=== PATIENT | male | born 1970 | race Caucasian/White ===

== ENCOUNTER 2017-11-02 09:19 | Inpatient (IN) | payer MEDICAID ==
[~2017-11-02] VITALS: Ht 177.8 cm; Wt 77.0 kg
[2017-11-02 09:24] VITALS: Ht 177.8 cm; Wt 77.0 kg
[2017-11-02] MEDS ORDERED: VANCOMYCIN 1 GM (PMX) 250 ML IVPB STA (10:09)
[2017-11-02] MEDS ORDERED: SODIUM CHLORIDE 0.9% 1L BAG IV* STA (10:09)
[2017-11-02] MEDS ORDERED: PIPER-TAZO 3.375 GM IV (PMX) 50 ML IVPB STA (10:09)
--- NOTE | 2017-11-02 10:52 | RADRPT ---
PROCEDURE: XR Chest. CLINICAL INDICATION: Sepsis TECHNIQUE: Single AP portable chest. COMPARISON: No prior Chest x-ray FINDINGS: The cardiomediastinal silhouette is within normal limits of size. The lungs are clear without pleur al effusion or focal consolidation. No pneumothorax. The osseous structures and soft tissues are unr emarkable. IMPRESSION: 1. No evidence for active cardiopulmonary disease. RPTAT:AAJJ Kaleigh Guerrero Physician Date Time Electronically viewed and signed by Physician Spencer on 11/02/2017 10:52 PARUL/
[2017-11-02 10:53] LABS: BASOPHILS % 0.4 % (0.0-2.0); EOSINOPHILS # 0.1 10^3/ul (0.0-0.5); EOSINOPHILS % 1.2 % (0.0-7.0); HEMATOCRIT 40.3 % (42.0-52.0); HEMOGLOBIN 14.2 g/dl (14.0-18.0); LYMPHOCYTES # 1.6 10^3/ul (0.8-2.9); LYMPHOCYTES % 14.9 % (15.0-51.0); MEAN CORPUSCULAR HEMOGLOBIN 32.7 pg (29.0-33.0); MEAN CORPUSCULAR HGB CONC 35.2 g/dl (32.0-37.0); MEAN CORPUSCULAR VOLUME 92.9 fl (82.0-101.0); MEAN PLATELET VOLUME 10.5 fl (7.4-10.4); MONOCYTES % 9.4 % (0.0-11.0); NEUTROPHIL # 7.9 10^3/ul (1.6-7.5); NEUTROPHILS % 73.8 % (39.0-77.0); PLATELET COUNT 245 10^3/UL (140-415); RED BLOOD COUNT 4.34 10^6/ul (4.70-6.10); RED CELL DISTRIBUTION WIDTH 11.9 % (11.5-14.5); WHITE BLOOD COUNT 10.7 10^3/ul (4.8-10.8)
--- NOTE | 2017-11-02 11:02 | RADRPT ---
PROCEDURE: knee x-ray CLINICAL INDICATION: Sepsis. TECHNIQUE: AP, lateral and oblique views of the right knee were obtained. COMPARISON: None FINDINGS: No evidence of fracture or dislocation. The medial, lateral, as well as patellofemoral knee joint compartments are well maintained. Small suprapatellar joint effusion. Mild prepatellar soft tissue swelling. IMPRESSION: 1. No fracture or dislocation. MRI may be considered to exclude the possibility of septic arthritis 2. Small suprapatellar joint effusion. 3. Mild prepatellar soft tissue swelling. Correlate with direct inspection. RPTAT:AAJJ Physician Spencer Date Time Electronically viewed and signed by Physician Spencer on 11/02/2017 11:02 PARUL/
[2017-11-02 11:15] LABS: INR 1.08; PROTIME 14.1 Sec (11.9-14.9); PT RATIO 1.1
[2017-11-02 11:16] LABS: ALANINE AMINOTRANSFERASE 53 IU/L (13-69); ALBUMIN 4.4 g/dl (3.3-4.9); ALBUMIN/GLOBULIN RATIO 1.18; ALKALINE PHOSPHATASE 101 IU/L (42-121); ANION GAP 13 (8-16); ASPARTATE AMINO TRANSFERASE 62 IU/L (15-46); BILIRUBIN,INDIRECT 1.2 mg/dl (0-1.1); BILIRUBIN,TOTAL 1.2 mg/dl (0.2-1.3); BLOOD UREA NITROGEN 14 mg/dl (7-20); CALCIUM 9.8 mg/dl (8.4-10.2); CARBON DIOXIDE 29 mmol/L (21-31); CHLORIDE 102 mmol/L (97-110); CREATININE 0.79 mg/dl (0.61-1.24); GLUCOSE 105 mg/dl (70-220); PARTIAL THROMBOPLASTIN TIME 27.7 Sec (25.0-35.0); SODIUM 140 mmol/L (135-144); TOTAL PROTEIN 8.1 g/dl (6.1-8.1)
[2017-11-02 11:31] LABS: TROPONIN-I < 0.012 ng/ml (0.00-0.12)
[2017-11-02 11:42] LABS: ADD UMIC NO; UR ASCORBIC ACID 40 mg/dL (NEGATIVE); UR BILIRUBIN (Dip) NEGATIVE (NEGATIVE); UR BLOOD (Dip) NEGATIVE (NEGATIVE); UR CLARITY CLEAR (CLEAR); UR COLOR AMBER (YELLOW); UR GLUCOSE (Dip) NEGATIVE (NEGATIVE); UR KETONES (Dip) TRACE mg/dL (NEGATIVE); UR LEUKOCYTE ESTERASE (Dip) NEGATIVE Leu/ul (NEGATIVE); UR NITRITE (Dip) NEGATIVE (NEGATIVE); UR SPECIFIC GRAVITY (Dip) 1.026 (1.003-1.030); UR TOTAL PROTEIN (Dip) NEGATIVE (NEGATIVE); UR UROBILINOGEN (Dip) 1+ mg/dL (NEGATIVE)
[2017-11-02 12:28] LABS: C-REACTIVE PROTEIN 4.9 mg/dl (0.0-0.9)
[2017-11-02] MEDS ORDERED: ACETAMINOPHEN 325 MG TAB PO PRN ×2 (13:00→15:00)
[2017-11-02] MEDS ORDERED: ONDANSETRON 4 MG INJ IV PRN (13:00)
--- NOTE | 2017-11-02 13:20 | ERD ---
ER Documentation Chief Complaint Chief Complaint R. knee pain x 1 day, twisted at work HPI Patient is a 47-year-old male who presents with right knee pain. He fell onto his right knee on Wednesday while at work. He has pain and swelling to the right knee since and recently became warm to touch. He is unable to straighten his knee secondary to pain. He has pain with range of motion. He has had no treatment as of yet. Upon review of old medical records this is the patient's fourth visit to the ER since 2013. ROS All systems reviewed and are negative except as per history of present illness. Medications Home Meds No Active Prescriptions or Reported Meds Allergies Allergies: Coded Allergies: No Known Allergy (Unverified , 11/02/17) PMhx/Soc History of Surgery: Yes (gallbladder surgery; appendectomy) Anesthesia Reaction: No Hx Neurological Disorder: No Hx Respiratory Disorders: No Hx Cardiac Disorders: No Hx Psychiatric Problems: No Hx Miscellaneous Medical Probl: Yes (stomach ulcers) Hx Alcohol Use: No Hx Substance Use: Yes (marijuana) Hx Tobacco Use: No Smoking Status: Never smoker FmHx Family History: No diabetes Physical Exam Vitals Vital Signs Date Time Temp Pulse Resp B/P Pulse Ox O2 Delivery O2 Flow Rate FiO2 11/02/17 11:25 98.3 86 18 128/74 97 Room Air 11/02/17 09:24 98.1 83 19 124/69 97 Physical Exam Const: Moderate distress secondary to pain Head: Atraumatic Eyes: Normal Conjunctiva ENT: Normal External Ears, Nose and Mouth. Neck: Full range of motion..~ No meningismus. Resp: Clear to auscultation bilaterally Cardio: Regular rate and rhythm, no murmurs Abd: Soft, non tender, non distended. Normal bowel sounds Skin: Warm to touch with induration to the anterior right knee Back: No midline or flank tenderness Ext: No obvious joint effusion, swelling to the right knee which is more pronounced in the anterior section consistent with infectious bursitis or cellulitis Neur: Awake and alert Psych: Normal Mood and Affect Result Diagram: 11/02/17 1030 11/02/17 1030 Results 24 hrs Laboratory Tests Test 11/02/17 10:30 11/02/17 11:25 White Blood Count 10.710^3/ul Red Blood Count 4.3410^6/ul Hemoglobin 14.2g/dl Hematocrit 40.3% Mean Corpuscular Volume 92.9fl Mean Corpuscular Hemoglobin 32.7pg Mean Corpuscular Hemoglobin Concent 35.2g/dl Red Cell Distribution Width 11.9% Platelet Count 13779^3/UL Mean Platelet Volume 10.5fl Neutrophils % 73.8% Lymphocytes % 14.9% Monocytes % 9.4% Eosinophils % 1.2% Basophils % 0.4% Nucleated Red Blood Cells % 0.0/100WBC Neutrophils # 7.910^3/ul Lymphocytes # 1.610^3/ul Monocytes # 1.010^3/ul Eosinophils # 0.110^3/ul Basophils # 0.010^3/ul Nucleated Red Blood Cells # 0.010^3/ul Erythrocyte Sedimentation Rate 19mm/Hr Prothrombin Time 14.1Sec Prothrombin Time Ratio 1.1 INR International Normalized Ratio 1.08 Activated Partial Thromboplast Time 27.7Sec Sodium Level 140mmol/L Potassium Level 4.0mmol/L Chloride Level 102mmol/L Carbon Dioxide Level 29mmol/L Anion Gap 13 Blood Urea Nitrogen 14mg/dl Creatinine 0.79mg/dl Glucose Level 105mg/dl Lactic Acid Level 1.7mmol/L Calcium Level 9.8mg/dl Total Bilirubin 1.2mg/dl Direct Bilirubin 0.00mg/dl Indirect Bilirubin 1.2mg/dl Aspartate Amino Transf (AST/SGOT) 62IU/L Alanine Aminotransferase (ALT/SGPT) 53IU/L Alkaline Phosphatase 101IU/L Troponin I < 0.012ng/ml C-Reactive Protein 4.9mg/dl Total Protein 8.1g/dl Albumin 4.4g/dl Globulin 3.70g/dl Albumin/Globulin Ratio 1.18 Urine Color MINE Urine Clarity CLEAR Urine pH 5.0 Urine Specific Garvin 1.026 Urine Ketones TRACEmg/dL Urine Nitrite NEGATIVEmg/dL Urine Bilirubin NEGATIVEmg/dL Urine Urobilinogen 1+mg/dL Urine Leukocyte Esterase NEGATIVELeu/ul Urine Hemoglobin NEGATIVEmg/dL Urine Glucose NEGATIVEmg/dL Urine Total Protein NEGATIVEmg/dl Current Medications Medications (Trade) Dose Ordered Sig/Cookie Route PRN Reason Start Time Stop Time Status Last Admin Dose Admin Sodium Chloride 2390 ml 2,390 ml BOLUS OVER 2 HOURS STAT IV* 11/02/17 10:09 11/02/17 10:11 DC 12/12/17 11:13 Vancomycin HCl 250 ml @ 125 mls/hr ONCE STAT IVPB 11/02/17 10:09 11/02/17 12:08 DC 11/02/17 11:52 Piperacillin Sod/ Tazobactam Sod (Zosyn 3.375gm/ 50 ml (Pmx)) 50 ml @ 100 mls/hr ONCE STAT IVPB 11/02/17 10:09 11/02/17 10:38 DC 11/02/17 11:14 Ondansetron HCl (Zofran Inj) 4 mg BRIDGE ORDER PRN IV NAUSEA AND/OR VOMITING 11/02/17 13:00 11/03/17 12:59 Acetaminophen (Tylenol Tab) 650 mg ER BRIDGE PRN PO MILD PAIN/FEVER 11/02/17 13:00 11/03/17 12:59 Procedures/MDM Right knee x-ray negative for fracture per radiology. There is anterior soft tissue swelling. Chest x-ray negative for pneumonia or pneumothorax per radiology. Patient is a 47-year-old male presents with right knee pain with what appears to be cellulitis versus infectious bursitis. There is no obvious sign of joint effusion at this time and I doubt a septic joint. However the patient does have significant pain and will need admission for pain control and antibiotics. The patient was given broad-spectrum antibiotics. At this point I see no sign of sepsis. The patient will be admitted to the care of the panel team and I spoke with Dr. Palomares who is the orthopedic doctor ultrasound applications specialist who is willing to see the patient in consultation. Departure Diagnosis: Primary Impression: Cellulitis Site of cellulitis: extremity Site of cellulitis of extremity: lower extremity Laterality: right Qualified Code: L03.115 - Cellulitis of right lower extremity Additional Impression: Knee pain Chronicity: acute Laterality: right Qualified Code: M25.561 - Acute pain of right knee Condition: PETAR Hall MD Nov 02, 2017 13:20
[2017-11-02] MEDS ORDERED: NACL 0.9% 3 ML SYG IV SCH (15:00)
[2017-11-02] MEDS ORDERED: ONDANSETRON 4 MG TAB PO PRN (15:00)
[2017-11-02] MEDS ORDERED: HYDROCODONE/APAP (5/325) TAB PO PRN (15:00)
[2017-11-02 16:55] VITALS: TEMP 98.3
--- NOTE | 2017-11-02 16:55 | HP ---
Date/Time of Note Date/Time of Note DATE: 11/02/17 TIME: 16:46 Assessment/Plan VTE Prophylaxis VTE Prophylaxis Intervention: SCD's Assessment/Plan Assessment/Plan 47 yo M with no chronic medical conditions here with 3 days of L knee pain, swelling, and erythema after accidentally pressing his knee into a rock. Exam with evidence of superficial skin/soft tissue infection, joint swelling and effusion concerning for possible septic joint. Unclear why sepsis protocol initiated as pt does not meet SIRS criteria (HR <100, no need for supplemental O2, WBCs wnl) PLAN empiric vancomycin, no compelling indication for expansive gram negative coverage blood cultures given chills orthopedic surgery to evaluate for possible aspiration v I&D of note, if procedural intervention is advised, pt does not have any hx CAD, CHF, DM, CKD, CVA and is able to climb a flight of stairs without stopping .No further preoperative testing is indicated prior to low or intermediate risk surgical intervention pain control DVT prophx general diet regarding elevated AST, will repeat in AM. if still elevated, consider abd US, Hep C screen HPI/ROS Admit Date/Time Admit Date/Time Hx of Present Illness CC L knee pain and swelling HPI 47 yo M with no known chronic medical conditions on no chronic medications here with L knee pain and swelling x 3 days. Pt states he was on his knees sweeping the floor on Wednesday when he accidentally pressed his L knee onto a small rock which punctured the skin. Wednesday he noted his L knee was swollen and hurt to walk on, he also noticed some redness. This progressed to the point where the pain was so great he presented to the ER today. Pt reports some fevers and chills at home last night. Denies any nausea/vomiting. Of note, pt reports he is able to climb a flight of stairs without stopping when his knee isn't bothering him PMHx: none PSHx: none Fam Hx: no family members with HTN or DM Soc Hx: lives in the community, no tobacco, +THC PMH/Family/Social Social History Smoking Status: Never smoker Exam/Review of Systems Vital Signs Vitals Vital Signs Date Time Temp Pulse Resp B/P Pulse Ox O2 Delivery O2 Flow Rate FiO2 11/02/17 16:22 98.7 57 18 127/73 97 Room Air Exam Exam nad, responds to questions appropriately in Hungarian EOMI MMM no mrg lungs clear abd soft full AROM RLE L knee with mild patchy erythema, +mod joint swelling, +discomfort with flexion/ extension >30 degrees. no clear evidence of lymphangetic streaking WBCs nl, AST a little high, inflammatory markers elevated imaging with small effusion EKG with HR 53, TWIs in aVR, V1, V3 Labs Result Diagram: 11/02/17 1030 11/02/17 1030 Medications Medications Current Medications Ondansetron HCl (Zofran Tab) 4 mg Q6H PRN PO NAUSEA AND/OR VOMITING; Start 11/07 at 15:00 Acetaminophen (Tylenol Tab) 650 mg Q6H PRN PO PAIN LEVEL 1-3 OR FEVER; Start 11/02/17 at 15:00 Acetaminophen/ Hydrocodone Bitart ([place] (5/325)) 1 tab Q6H PRN PO MODERATE PAIN LEVEL 4-6; Start 11/02/17 at 15:00 Enoxaparin Sodium (Lovenox) 40 mg DAILY SC ; Start 11/03/17 at 09:00 MEGHAN GAMBOA MD Nov 02, 2017 16:55
[2017-11-02] MEDS ORDERED: VANCOMYCIN IV PER PHARMACY XX SCH (17:00)
[2017-11-02 20:00] VITALS: BP 118/63; PULSE 70; RESP 20
[2017-11-02 20:34] VITALS: BP 118/63; RESP 20
[2017-11-02] MEDS: VANCOMYCIN 1.5 GM in SOD CHLORIDE 0.9% 250 ML IVPB SCH (20:34)
--- NOTE | 2017-11-02 23:04 | CONS ---
DATE OF ADMISSION: 11/02/2017 DATE OF CONSULTATION: 11/02/2017 ORTHOPEDIC SURGICAL CONSULTATION REPORT HISTORY OF PRESENT ILLNESS: The patient is a 47 the year old may who was admitted on the October, when he came to the emergency room complaining of painful swelling involving his right knee. According to the patient, he was on his knee, working on tiles, when he pressed his right knee against a tile. Following the incident, about 3 days ago, he was developing pain and swelling, and because of the increasing pain, along with the fever and chills, he came to the emergency room and was admitted. Denies any other major medical problems. Denies any history of previous injuries involving his right knee. At the time of my evaluation, he was afebrile, and there was no leukocytosis. There was a mild to moderate diffuse swelling over the anterior aspect of the right knee, with possible effusion involving the part of the prepatellar bursa. Even though there was tenderness and swelling over the anterior aspect of the right knee, mainly involving soft tissues, there were no obvious effusions in the knee itself. Range of motion of the right knee was mildly limited because of the pain. There were no signs of neurovascular compromise involving the right lower extremity. X-rays of the right knee revealed a soft tissue swelling anterior to the patella, with mild effusion in the suprapatellar area. DIAGNOSTIC IMPRESSION: Cellulitis over the anterior aspect of the right knee, with possible prepatellar bursitis of the right knee. RECOMMENDATIONS FOR MANAGEMENT: 1. Continue IV antibiotics, as he is on now. 2. Continuous warm compress to speed up the process. 3. Possible I and D, if it is indicated later on. Dictated By: In Shelia Palomares MD /dayana/storm /Document#: [id number]
[2017-11-03 02:26] VITALS: BP 111/60; RESP 21
[2017-11-03 06:01] LABS: BASOPHILS % 0.2 % (0.0-2.0); EOSINOPHILS # 0.2 10^3/ul (0.0-0.5); EOSINOPHILS % 1.9 % (0.0-7.0); HEMATOCRIT 38.7 % (42.0-52.0); HEMOGLOBIN 13.5 g/dl (14.0-18.0); LYMPHOCYTES # 1.4 10^3/ul (0.8-2.9); LYMPHOCYTES % 16.4 % (15.0-51.0); MEAN CORPUSCULAR HEMOGLOBIN 33.1 pg (29.0-33.0); MEAN CORPUSCULAR HGB CONC 34.9 g/dl (32.0-37.0); MEAN CORPUSCULAR VOLUME 94.9 fl (82.0-101.0); MEAN PLATELET VOLUME 11.1 fl (7.4-10.4); MONOCYTE # 0.9 10^3/ul (0.3-0.9); PLATELET COUNT 230 10^3/UL (140-415); RED BLOOD COUNT 4.08 10^6/ul (4.70-6.10); WHITE BLOOD COUNT 8.5 10^3/ul (4.8-10.8)
[2017-11-03 06:33] LABS: CALCIUM 9.1 mg/dl (8.4-10.2); CREATININE 0.8 mg/dl (0.61-1.24); PHOSPHORUS 3.2 mg/dl (2.5-4.9)
[2017-11-03 06:44] LABS: ALBUMIN 3.6 g/dl (3.3-4.9); BILIRUBIN,INDIRECT 0.9 mg/dl (0-1.1); BILIRUBIN,TOTAL 0.9 mg/dl (0.2-1.3); TOTAL PROTEIN 6.8 g/dl (6.1-8.1)
[2017-11-03] MEDS: VANCOMYCIN 1.5 GM in SOD CHLORIDE 0.9% 250 ML IVPB SCH (06:55)
[2017-11-03 07:59] VITALS: BP 104/60; RESP 16
[2017-11-03] MEDS: ENOXAPARIN 40 MG/0.4 ML SYG SC SCH (09:18)
[2017-11-03 15:00] VITALS: BP 119/64; RESP 16
[2017-11-03] MEDS: DOXYCYCLINE 100 MG TAB PO SCH ×2 (15:11→21:12)
[2017-11-03] MEDS: CEPHALEXIN 500 MG CAP PO SCH ×2 (15:11→17:17)
--- NOTE | 2017-11-03 18:20 | PN ---
DATE: 11/03/2017 Much better with less pain, less tenderness and less swelling around the right knee. No evidence of septic arthritis. Continue IV antibiotics with heating pad over the anterior aspect of the right knee further. No evidence of any findings suggestive of any surgical intervention. Further ortho follow-up will be on p.r.n. basis. Dictated By: In Shelia Palomares MD /dayana/carmela /Document#: [id number]
[2017-11-03] MEDS ORDERED: DOXY100T2 PO (18:35)
[2017-11-03] MEDS ORDERED: CEPH500C PO (18:35)
--- NOTE | 2017-11-03 18:37 | PDOCDIS ---
Discharge Instructions CONDITION Patient Condition: Good HOME CARE INSTRUCTIONS: Special Diet: Regular FOLLOW UP/APPOINTMENTS Follow-up Plan Keep taking the antibiotics and follow up with the orthopedic doctor within 2 weeks. If your knee becomes more swollen or you experience any more fevers, chills, or worsening redness of your knee please come to the ER right away Siga tomando los antibiticos y madelyn un seguimiento con el mdalexx ortopdico en 2 semanas. Si tu rodilla se hincha ms o experimentas ms fiebres, escalofros o empeoramiento del enrojecimiento de tu rodilla, por favor acude a urgencias de inmediato Dr Alex Palomares [id number] [facility] [address] [place] [address] MEGHAN GAMBOA MD Nov 03, 2017 18:37
--- NOTE | 2017-11-03 18:39 | DS ---
Date/Time of Note Date/Time of Note DATE: 11/03/17 TIME: 18:38 Discharge Summary Admission/Discharge Info Admit Date/Time Nov 02, 2017 at 12:49 Discharge Date/Time Discharge Diagnosis Cellulitis over the anterior aspect of the right knee, with possible prepatellar bursitis of the right knee Patient Condition: Good Consults orthopedic surgery Procedures 12. R knee XR IMPRESSION: 1. No fracture or dislocation. MRI may be considered to exclude the possibility of septic arthritis 2. Small suprapatellar joint effusion. 3. Mild prepatellar soft tissue swelling. Correlate with direct inspection. 11.02 blood cultures ng x 1d Hx of Present Illness CC L knee pain and swelling HPI 47 yo M with no known chronic medical conditions on no chronic medications here with L knee pain and swelling x 3 days. Pt states he was on his knees sweeping the floor on Wednesday when he accidentally pressed his L knee onto a small rock which punctured the skin. Wednesday he noted his L knee was swollen and hurt to walk on, he also noticed some redness. This progressed to the point where the pain was so great he presented to the ER today. Pt reports some fevers and chills at home last night. Denies any nausea/vomiting. Of note, pt reports he is able to climb a flight of stairs without stopping when his knee isn't bothering him PMHx: none PSHx: none Fam Hx: no family members with HTN or DM Soc Hx: lives in the community, no tobacco, +THC Hospital Course Pt started on vanc, knee pain and swelling significantly improved. Pain resolved. Pt seen by ortho, no procedural intervention advised. Per ortho no evidence of septic joint. Given pain improvement, pt requested discharge. He is being sent out on 2 weeks of PO abx for the prospect of septic bursitis. Close follow up with orthopedic surgery advised. Home Meds Active Scripts Doxycycline* (Vibramycin*) 100 Mg Tab, 100 MG PO BID for 12 Days, #24 TAB Prov:MEGHAN GAMBOA MD 11/03/17 Cephalexin* (Cephalexin*) 500 Mg Capsule, 500 MG PO Q6 for 14 Days, #48 CAP Prov:MEGHAN GAMBOA MD 11/03/17 Follow-up Plan Keep taking the antibiotics and follow up with the orthopedic doctor within 2 weeks. If your knee becomes more swollen or you experience any more fevers, chills, or worsening redness of your knee please come to the ER right away Siga tomando los antibiticos y madelyn un seguimiento con el adonay orbrianadisaeed en 2 semanas. Si estella se hincha ms o experimentas ms fiebres, escalofros o empeoramiento del enrojecimiento de estella, por favor acude a urgencias de inmediato Dr Alex Alamo [id number] [id number] Primary Care Provider Care Physician No Primary Pending Labs Laboratory Tests Test 11/03/17 04:59 White Blood Count 8.510^3/ul (4.8-10.8) Red Blood Count 4.0810^6/ul (4.70-6.10) Hemoglobin 13.5g/dl (14.0-18.0) Hematocrit 38.7% (42.0-52.0) Mean Corpuscular Volume 94.9fl (82.0-101.0) Mean Corpuscular Hemoglobin 33.1pg (29.0-33.0) Mean Corpuscular Hemoglobin Concent 34.9g/dl (32.0-37.0) Red Cell Distribution Width 12.0% (11.5-14.5) Platelet Count 13839^3/UL (140-415) Mean Platelet Volume 11.1fl (7.4-10.4) Neutrophils % 71.0% (39.0-77.0) Lymphocytes % 16.4% (15.0-51.0) Monocytes % 10.0% (0.0-11.0) Eosinophils % 1.9% (0.0-7.0) Basophils % 0.2% (0.0-2.0) Nucleated Red Blood Cells % 0.0/100WBC (0.0-0.0) Neutrophils # 6.010^3/ul (1.6-7.5) Lymphocytes # 1.410^3/ul (0.8-2.9) Monocytes # 0.910^3/ul (0.3-0.9) Eosinophils # 0.210^3/ul (0.0-0.5) Basophils # 0.010^3/ul (0.0-0.1) Nucleated Red Blood Cells # 0.010^3/ul (0.0-0.0) Sodium Level 143mmol/L (135-144) Potassium Level 4.0mmol/L (3.5-5.1) Chloride Level 106mmol/L (97-110) Carbon Dioxide Level 28mmol/L (21-31) Anion Gap 13 (8-16) Blood Urea Nitrogen 9mg/dl (7-20) Creatinine 0.80mg/dl (0.61-1.24) Glucose Level 100mg/dl (70-220) Hemoglobin A1c 5.2% (0-5.9) Calcium Level 9.1mg/dl (8.4-10.2) Phosphorus Level 3.2mg/dl (2.5-4.9) Magnesium Level 2.0mg/dl (1.7-2.5) Total Bilirubin 0.9mg/dl (0.2-1.3) Direct Bilirubin 0.00mg/dl (0.00-0.20) Indirect Bilirubin 0.9mg/dl (0-1.1) Aspartate Amino Transf (AST/SGOT) 95IU/L (15-46) Alanine Aminotransferase (ALT/SGPT) 79IU/L (13-69) Alkaline Phosphatase 122IU/L (42-121) Total Protein 6.8g/dl (6.1-8.1) Albumin 3.6g/dl (3.3-4.9) Copies To: CC: ALEX ALAMO MD, ELLEN MD Nov 03, 2017 18:39
[2017-11-03 20:16] VITALS: BP 119/72; RESP 21
[2017-11-04] MEDS: CEPHALEXIN 500 MG CAP PO SCH ×3 (00:45→11:57)
[2017-11-04 02:42] VITALS: BP 123/60; RESP 20
[2017-11-04 05:41] LABS: BILIRUBIN,INDIRECT 0.6 mg/dl (0-1.1); BILIRUBIN,TOTAL 0.6 mg/dl (0.2-1.3); TOTAL PROTEIN 7.7 g/dl (6.1-8.1)
[2017-11-04 07:52] LABS: HEPATITIS B CORE ANTIBODY NEGATIVE (NEGATIVE)
[2017-11-04 07:56] VITALS: BP 123/77; RESP 16
--- NOTE | 2017-11-04 08:20 | DS ---
Date/Time of Note Date/Time of Note DATE: 11/04/17 TIME: 08:18 Discharge Summary Admission/Discharge Info Admit Date/Time Nov 02, 2017 at 12:49 Discharge Date/Time Discharge Diagnosis Cellulitis over the anterior aspect of the right knee, with possible prepatellar bursitis of the right knee. transaminitis RESOLVED Consults orthopedic surgery Procedures Liver US (report not yet uploaded at time of creation of this dc summary) dw radiologist. sp corine, no biliary dilatation, other unremarkable. hepatitis C Ab neg, Hep BcAb/sAg/sAb neg, HepA Ab + Hx of Present Illness CC L knee pain and swelling HPI 47 yo M with no known chronic medical conditions on no chronic medications here with L knee pain and swelling x 3 days. Pt states he was on his knees sweeping the floor on Wednesday when he accidentally pressed his L knee onto a small rock which punctured the skin. Wednesday he noted his L knee was swollen and hurt to walk on, he also noticed some redness. This progressed to the point where the pain was so great he presented to the ER today. Pt reports some fevers and chills at home last night. Denies any nausea/vomiting. Of note, pt reports he is able to climb a flight of stairs without stopping when his knee isn't bothering him PMHx: none PSHx: none Fam Hx: no family members with HTN or DM Soc Hx: lives in the community, no tobacco, +THC Hospital Course Pt started on vanc, knee pain and swelling significantly improved. Pain resolved. Pt seen by ortho, no procedural intervention advised. Per ortho no evidence of septic joint. Given pain improvement, pt requested discharge. He is being sent out on 2 weeks of PO abx for the prospect of septic bursitis. Close follow up with orthopedic surgery advised. Pt had transaminitis on HD 2 which resolved without intervention on date of discharge. Viral hepatitis serologies consistent previous HepA exposure v vaccination. Pt denied EtOH consumption or any new meds/supplements. Liver US unremarkable Home Meds Active Scripts Doxycycline* (Vibramycin*) 100 Mg Tab, 100 MG PO BID for 12 Days, #24 TAB Prov:MEGHAN GAMBOA MD 11/03/17 Cephalexin* (Cephalexin*) 500 Mg Capsule, 500 MG PO Q6 for 14 Days, #48 CAP Prov:MEGHAN GAMBOA MD 11/03/17 Follow-up Plan Keep taking the antibiotics and follow up with the orthopedic doctor within 2 weeks. If your knee becomes more swollen or you experience any more fevers, chills, or worsening redness of your knee please come to the ER right away Siga tomando los antibiticos y madelyn un seguimiento con el mdalexx ortopdico en 2 semanas. Si tu rodilla se hincha ms o experimentas ms fiebres, escalofros o empeoramiento del enrojecimiento de tu rodilla, por favor acude a urgencias de inmediato Dr Alex Alamo [id number] [facility] [address] [place] [address] Primary Care Provider Care Physician No Primary Time spent on discharge: > 30 minutes Pending Labs Laboratory Tests Test 11/04/17 04:26 Total Bilirubin 0.6mg/dl (0.2-1.3) Direct Bilirubin 0.00mg/dl (0.00-0.20) Indirect Bilirubin 0.6mg/dl (0-1.1) Aspartate Amino Transf (AST/SGOT) 38IU/L (15-46) Alanine Aminotransferase (ALT/SGPT) 57IU/L (13-69) Alkaline Phosphatase 117IU/L (42-121) Total Protein 7.7g/dl (6.1-8.1) Albumin 4.0g/dl (3.3-4.9) Hepatitis A Antibody Total POSITIVE (NEGATIVE) Hepatitis B Surface Antigen NEGATIVE (NEGATIVE) Hepatitis B Surface Antibody NEGATIVE (NEGATIVE) Hepatitis B Core Total Antibody NEGATIVE (NEGATIVE) Hepatitis C Antibody NEGATIVE (NEGATIVE) Copies To: CC: ALEX ALAMO MD, ELLEN MD Nov 04, 2017 08:20
[2017-11-04] MEDS: DOXYCYCLINE 100 MG TAB PO SCH (09:10)
[2017-11-04] MEDS: ENOXAPARIN 40 MG/0.4 ML SYG SC SCH (09:10)
--- NOTE | 2017-11-04 16:51 | RADRPT ---
PROCEDURE: US Abdomen. CLINICAL INDICATION: Abdominal pain. Elevated LFTs TECHNIQUE: Multiple real-time images were acquired of the patient's abdomen and retroperitoneum ut ilizing a high resolution transducer. COMPARISON: CT 09/03/2014 FINDINGS: The pancreas appears to be within normal limits. The aorta and IVC are within normal limits. Hepatic morphology is within limits. There is normal homogeneous echotexture of the liver. The liver measures 14.4 cm in length. There is normal hepatic pedal flow of the portal vein. The gallbladder is not visualized. Status post cholecystectomy. The common bile duct is with normal limits measuring 3.6 mm. The right kidney measures 9.3 cm. The cortex and parenchymal with normal limits. No evidence of obst ruction hydronephrosis. The left kidney measures 10.4 cm. The cortex and parenchyma are within limit s. No evidence of obstruction or hydronephrosis. The spleen is within normal limits measuring 8.3 cm. IMPRESSION: 1. Status post cholecystectomy. Common bile duct is within limits. 2. The liver appears to be sonographically within normal limits. 3. Otherwise, unremarkable ultrasound of the abdomen. RPTAT: AAPP Physician Thee Date Time Electronically viewed and signed by Physician Thee on 11/04/2017 10:50 JL/
== END 2017-11-04 16:33 | disposition home or self-care (01) | DRG 603 ==
LOC: FTE 09:19 → PP2 12:49
PROVIDERS: ADMIT Internal Medicine; ATTEND Internal Medicine
DX: L03.115 Cellulitis of right lower limb (principal); K75.9 Inflammatory liver disease, unspecified; M70.41 Prepatellar bursitis, right knee
CPT/HCPCS: 36415; 71010; 73562; 76700; 80048; 80053; 80076; 81003; 83036; 83605; 83735; 84100; 84484; 85025; 85610; 85651; 85730; 86140; 86704; 86706; 86708; 86709; 86803; 87040; 87086; 87340; 93005; 96374; 96375; J1650; J2543; J3370; J7030; J7050